=== PATIENT | female | born 1940 | race Asian ===

== ENCOUNTER 2021-07-23 04:57 | Day surgery (SDC) | payer OTHER ==
[2021-07-23] MEDS ORDERED: MIDAZOLAM HCL 2 MG/2 ML SINGLE DOSE VIAL ONE (12:19)
[2021-07-23] MEDS ORDERED: FENTANYL CITRATE/PF 50 MCG/ML VIAL ONE ×2 (12:20)
[2021-07-23] MEDS ORDERED: SODIUM CHLORIDE 500 ML IV ONE (12:50)
[2021-07-23] MEDS ORDERED: FENTANYL CITRATE/PF 50 MCG/ML VIAL IVPUSH ONE ×2 (12:50→12:58)
[2021-07-23 14:55] VITALS: TEMP 97.8
[2021-07-23 14:59] VITALS: BP 127/60; PULSE 56
== END 2021-07-23 15:05 | disposition home or self-care (01) ==
LOC: JRADIR 04:57
PROVIDERS: ATTEND Internal Medicine Hematology & Oncology
PROC: 07DR3ZX Extraction of Iliac Bone Marrow, Percutaneous Approach, Diagnostic (ICD-10-PCS; principal; 2021-07-23)
PROC: BQ20ZZZ Computerized Tomography (CT Scan) of Right Hip (ICD-10-PCS; 2021-07-23)
DX: D72.819 Decreased white blood cell count, unspecified (principal)
CPT/HCPCS: 20225; 88300-TC

== ENCOUNTER 2021-10-06 20:48 | Emergency (ER) | payer OTHER ==
[2021-10-06 21:05] VITALS: BP 133/59; PULSE 76; RESP 16; TEMP 98.5
== END 2021-10-06 21:08 | disposition home or self-care (01) ==
LOC: FER 20:48
DX: Z20.822 Contact with and (suspected) exposure to COVID-19 (principal)
CPT/HCPCS: 0241U-QW; 99283-25